=== PATIENT | female | born 1985 | race African-American/Black ===

== ENCOUNTER 2018-08-13 06:39 | Emergency (ER) | payer MEDICAID ==
[~2018-08-13] VITALS: Ht 172.7 cm; Wt 102.3 kg
[2018-08-13 06:54] VITALS: Ht 172.7 cm; Wt 102.3 kg
[2018-08-13] MEDS ORDERED: NAPROSYN500 MG PO (07:13)
[2018-08-13] MEDS ORDERED: AMOXICILLIN500 M1 PO (07:13)
[2018-08-13 08:19] VITALS: BP 122/80
== END 2018-08-13 08:20 | disposition home or self-care (01) ==
LOC: D.ER 06:39 → EDBD 06:39 → D.ER 08:20
DX: K08.89 Other specified disorders of teeth and supporting structures (principal)